=== PATIENT | female | born 1970 | race Caucasian/White ===

== ENCOUNTER → 2023-04-13 09:06 | Outpatient (REF) | payer OTHER, SELFPAY | LOC: HWWDC 09:06 | PROVIDERS: ATTENDING PHYSICIAN Physician Assistant Medical | DX: Z12.31 Encounter for screening mammogram for malignant neoplasm of breast (principal) | CPT/HCPCS: 77063; 77067 ==

== ENCOUNTER → 2023-12-14 13:51 | Outpatient (REF) | payer OTHER, SELFPAY | LOC: DHSLP 13:51 | PROVIDERS: ATTENDING PHYSICIAN Physician Assistant Medical | DX: G47.30 Sleep apnea, unspecified (principal) | CPT/HCPCS: 95806 ==

== ENCOUNTER 2024-02-10 06:20 | Emergency (ER) | payer OTHER, SELFPAY ==
[2024-02-10 06:21] VITALS: BP 157/87
[2024-02-10 06:40] VITALS: BMI 29.7
[2024-02-10] MEDS: DILAUDID 0.5 MG IV ×2 (06:44→10:37)
[2024-02-10] MEDS: ZOFRAN 4 MG IV (06:44)
[2024-02-10 07:02] LABS: % Basophils 0.9 % (0-2); % Eosinophils 4.7 % (0-6); % Immature Granulocytes 0.5 % (0-0.5); % Lymphocytes 34.2 % (20.5-51.1); % Monocytes 10.9 % (1.7-9.3); % Neutrophils 48.8 % (42.2-75.2); Absolute Basophils 0.1 10^3/uL (0-0.2); Absolute Eosinophils 0.3 10^3/uL (0-0.7); Absolute Lymphocytes 2.2 10^3/uL (1.2-3.4); Absolute Monocytes 0.7 10^3/uL (0.1-0.6); Absolute Neutrophils 3.1 10^3/uL (1.4-6.5); Hemoglobin 13.6 g/dL (12.0-16.0); Mean Corp Hgb Conc. 33.2 g/dL (33.0-37.0); Mean Corpuscular Hgb 30.6 pg (27.0-31.0); Mean Corpuscular Volume 92.1 fL (81.0-99.0); Mean Platelet Volume 9.6 fL (7.4-10.4); Nucleated Red Blood Cells % 0 %; Platelet Count 260 10^3/uL (130-400); Red Blood Cell Count 4.45 10^6/uL (4.20-5.40); Red Cell Dist. Width 12.4 % (11.5-14.5); White Blood Cell Count 6.3 10^3/uL (4.8-10.8)
--- NOTE | 2024-02-10 07:05 | EDRN ---
Ana VELASQUEZ in room w/ pt.
--- NOTE | 2024-02-10 07:17 | ED.GENMED ---
History of Present Illness
General
Chief Complaint: Abdominal Pain
Source: patient
Time Seen by Provider: 02/10/24 06:57
History of Present Illness
History of Present Illness:
53-year-old female presents with relatively sudden onset left lower quadrant abdominal pain. Does not radiate to the flank is sharp in nature with associated vomiting. No urinary symptoms. She has an IUD. No fever. She is healthy otherwise.
She does not take any medications daily.
Past History
Past History
ED Past Medical History: Asthma and Other (Anxiety)
ED Past Surgical History: None
Social History
Tobacco: Non-smoker
Alcohol: None
Living: with family
Phy Exam
Physical Exam
Physical Exam:
General: Well-appearing female no acute respiratory distress
HEENT: Normocephalic atraumatic
Heart: Regular rate and rhythm
Lungs: Clear no no wheeze or rales
Abdomen soft tender to the left lower quadrant no guarding or rebound normal bowel sounds nondistended
Extremities: No cyanosis
Course
Orders/Labs/Results
Orders:
Orders
02/10/24 06:30
HYDROmorphone [Dilaudid] 0.5 mg .ROUTE .STK-MED ONE
02/10/24 06:35
Ondansetron Injectable [Zofran] 4 mg .ROUTE .STK-MED ONE
02/10/24 06:43
Complete Blood Count/With Diff Urgent
Comprehensive Metabolic Panel Urgent
Lipase Urgent
02/10/24 06:44
HYDROmorphone [Dilaudid] 0.5 mg IV NOW STA
Ondansetron Injectable [Zofran] 4 mg IV NOW STA
02/10/24 07:09
CT Abd/pel Without Iv Or Oral Urgent
Comment:
Reason For Exam: LLQ pain
Ketorolac [Toradol] 15 mg IV NOW STA
02/10/24 07:53
0.9% Sodium Chloride 500 ml [Nss] 1,000 ml IV BOLUS
0.9% Sodium Chloride 500 ml [Nss] 500 ml IV BOLUS
02/10/24 09:30
Urinalysis Reflex To Culture Urgent
Date Specimen was Collected: 02/10/24
Time Specimen was Collected: 09:18
Urine Microscopic Reflex Cult Urgent
Urine Culture Urgent
CHUY Source: U
Specimen Description:
Date Specimen was Collected: 02/10/24
Time Specimen was Collected: 09:18
02/10/24 09:31
HYDROmorphone [Dilaudid] 0.5 mg IV NOW STA
02/10/24 09:34
Ketorolac [Toradol] 15 mg .ROUTE .STK-MED ONE
02/10/24 09:37
Ketorolac [Toradol] 15 mg IV NOW STA
02/10/24 10:34
Tamsulosin [Flomax] 0.4 mg PO NOW STA
02/10/24 10:36
Tamsulosin [Flomax] 0.4 mg .ROUTE .STK-MED ONE
Abnormal Lab Results
02/10/24 02/10/24
06:43 09:30
Absolute Monos (auto) 0.7 H 10^3/uL
(0.1-0.6)
Monocytes % 10.9 H %
(1.7-9.3)
Glucose 140 H mg/dl
(70-99)
ALT 36 H U/L
(0-35)
Albumin 5.1 H g/dl
(3.5-5.0)
Ur Occult Blood Reflex 4+ A
(Negative)
Urine RBC >100 A /HPF
(0-2)
Urine Bacteria (Reflex) Moderate A
(Negative)
02/10/24 06:43
02/10/24 06:43
Vital Signs
Initial and Last Documented VS:
Initial Vital Signs
Temp Pulse Resp BP Pulse Ox
97.7 F 78 28 157/87 99
02/10/24 06:21 02/10/24 06:21 02/10/24 06:21 02/10/24 06:21 02/10/24 06:21
Last Documented Vital Signs
Temp Pulse Resp BP Pulse Ox
97.7 F 74 14 143/80 95
02/10/24 06:21 02/10/24 11:00 02/10/24 11:00 02/10/24 11:00 02/10/24 11:00
MDM/Problems Addressed
Differential Diagnosis Includes:
Left lower quadrant abdominal pain. Consider renal colic versus diverticulitis versus torsion versus constipation
Labs pending. Will treat. Dilaudid and Toradol. CT pending
*Critical Care Note
Total Time (30-74mins, 75-104mins- exclusive of procedures): Not Applicable
Update Note
Update Note:
Your patient has 3 mm stone in left distal ureter. Patient received multiple doses of pain medicine here and now has tolerable discomfort. Will send home on pain medicine nausea medicine and Flomax with instructions to follow-up with urology. At
this point no indication for admission to hospital.
ED Attending Note
-
Portions of this chart may have been created with voice recognition software.� Occasional wrong word or��sound alike� substitutions may have occurred due to the inherent limitations of voice recognition software.
Discharge Plan
Departure
Patient Disposition: Home (Routine Discharge)
Date of Disposition: 02/10/24
Time of Disposition: 11:39
Patient with high blood pressure during this ER visit?: No
Discharge Problem:
Kidney stone
Instructions: Kidney Stones (DC)
Prescriptions:
New
oxycodone-acetaminophen [Percocet] 5-325 mg tablet
1 tab PO Q8H PRN (Reason: Pain) Qty: 10 0RF
tamsulosin [Flomax] 0.4 mg capsule
0.4 mg PO DAILY Qty: 10 0RF
ondansetron 4 mg tablet,disintegrating
4 mg PO Q8H PRN (Reason: nausea and vomiting) Qty: 10 0RF
No Action
fluoxetine 20 MG capsule
30 mg PO DAILY
phenazopyridine 200 MG tablet
200 mg PO TIDPRN PRN (Reason: bladder spasms) Qty: 10 0RF
ciprofloxacin HCl [Cipro] 500 MG tablet
500 mg PO BID Qty: 10 0RF
Referrals:
Kely Beasley PA [Family Provider] -
Activity Restrictions/Additional Instructions:
Take pain medicine as needed. Use nausea medicine as needed. Follow-up with urology if symptoms persist. Please return here for increasing pain vomiting fever or other concerning findings.
Interventions
Interventions:
*Risk Screen - Suicide Last Done: 02/10/24 06:21
*General Assessment Last Done: 02/10/24 06:41
*Neglect/Abuse Screening Last Done: 02/10/24 06:41
ED- Fall Risk Assessment Last Done: 02/10/24 06:41
*ED COVID-19 Vaccine History Last Done: 02/10/24 06:41
OZ-Fccunj-Fzlifqoosm Assessment Last Done: 02/10/24 06:41
Discharge Date and Time
Print Language: SINHALA
[2024-02-10 07:22] LABS: ALT (SGPT) 36 U/L (0-35); AST (SGOT) 34 U/L (14-36); Albumin 5.1 g/dl (3.5-5.0); Alkaline Phosphatase 62 U/L (38-126); Blood Urea Nitrogen 13 mg/dl (7-17); Calcium 10.1 mg/dl (8.4-10.2); Carbon Dioxide 28 mmol/L (22-30); Chloride 103 mmol/L (98-107); Estimated Creatinine Clearance 81 ml/min; Glucose 140 mg/dl (70-99); Lipase 163 U/L (23-300); Potassium 4.5 mmol/L (3.5-5.1); Sodium 144 mmol/L (135-145); Total Bilirubin 0.4 mg/dl (0.2-1.3); Total Protein 7.8 g/dl (6.3-8.2); eGFR > 60.00
[2024-02-10 07:40] VITALS: BP 163/95
[2024-02-10] MEDS: TORADOL 15 MG IV ×2 (07:49→09:37)
[2024-02-10] MEDS: NSS 1000 IV (07:54)
[2024-02-10 08:00] VITALS: BP 125/72
[2024-02-10 09:00] VITALS: BP 134/81
[2024-02-10 09:42] LABS: Urine Albumin Trace (Neg - Trace); Urine Bilirubin Negative (Negative); Urine Character Clear (Clear); Urine Color Yellow; Urine Glucose Negative (Negative); Urine Ketone Negative (Negative); Urine Leukocyte Negative (Negative); Urine Nitrite Negative (Negative); Urine Occult Blood 4+ (Negative); Urine Urobilinogen Negative (Neg - 1+)
--- NOTE | 2024-02-10 09:47 | EDRN ---
Ana VELASQUEZ in room w/ pt at this time.
[2024-02-10 10:00] VITALS: BP 135/78
[2024-02-10 10:00] LABS: Urine Squamous Cell >30 /LPF (Few)
[2024-02-10 10:05] LABS: Urine Mucus Many
[2024-02-10 10:07] LABS: Urine Amorphous Seen
[2024-02-10 10:08] LABS: Urine Red Blood Cell >100 /HPF (0-2)
[2024-02-10 10:09] LABS: Urine Bacteria Moderate (Negative); Urine White Cell 0-2 /HPF (0-5)
[2024-02-10] MEDS: FLOMAX 0.4 MG PO (10:38)
[2024-02-10 11:00] VITALS: BP 143/80
--- NOTE | 2024-02-10 11:47 | EDRN ---
Ana VELASQUEZ in room w/ pt.
== END 2024-02-10 11:58 | disposition home or self-care (01) ==
LOC: EMR 06:20
PROVIDERS: Physician Assistant; EMERGENCY PHYSICIAN Emergency Medicine; FAMILY PHYSICIAN Physician Assistant Medical
DX: R10.32 Left lower quadrant pain (principal); N13.2 Hydronephrosis with renal and ureteral calculous obstruction
CPT/HCPCS: 99284; 96374; 96375 ×2; 96361; 74176; 80053; 81003; 81015; 83690; 85025; 87086

== ENCOUNTER → 2024-04-08 14:55 | Outpatient (REF) | payer OTHER, SELFPAY | LOC: RAD 14:55 | PROVIDERS: ATTENDING PHYSICIAN Surgery; FAMILY PHYSICIAN Physician Assistant Medical | DX: N13.2 Hydronephrosis with renal and ureteral calculous obstruction (principal) | CPT/HCPCS: 74018 ==

== ENCOUNTER 2024-04-15 06:28 | Day surgery (SDC) | payer OTHER, SELFPAY ==
[2024-04-15 13:40] VITALS: BMI 29.1
[2024-04-15] MEDS: NORMOSOL-R/PLASMALYTE-A 1000 IV (13:55)
[2024-04-15 13:58] VITALS: BP 119/65
[2024-04-15 15:17] VITALS: BP 103/62; BP 119/65
[2024-04-15 15:30] VITALS: BP 107/65
[2024-04-15] MEDS: Pyridium 200 MG PO (15:34)
[2024-04-15] MEDS: DETROL LA 4 MG PO (15:34)
[2024-04-15 16:00] VITALS: BP 108/57
[2024-04-15 16:15] VITALS: BP 130/87
== END 2024-04-15 16:42 | disposition home or self-care (01) ==
LOC: SDS 06:28
PROVIDERS: ATTENDING PHYSICIAN Surgery
DX: N20.1 Calculus of ureter (principal)
CPT/HCPCS: 52353; 74018; 76000; C1769